=== PATIENT | male | born 1995 | race Caucasian/White ===

== ENCOUNTER 2020-11-24 16:55 | Emergency (ER) | payer SELFPAY ==
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
[2020-11-24 17:18] VITALS: BP 137/90; PULSE 76; RESP 16; TEMP 37.1; O2SAT 99
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
== END 2020-11-24 19:49 | disposition home or self-care (01) ==
PROVIDERS: Emergency Provider Emergency Medicine
DX: S00.93XA Contusion of unspecified part of head, initial encounter (principal); V48.5XXA Car driver injured in noncollision transport accident in traffic accident, initial encounter
CPT/HCPCS: 70450; 72125; 99284